=== PATIENT | female | born 1940 | race Caucasian/White ===

== ENCOUNTER 2022-04-11 05:50 | Inpatient (IN) ==
[~2022-04-11 05:50] MED LIST: Buffered Lidocaine 1% SYRIN 1 ml INTRADERM ONE; HYDROcodone/ACETAMIN 5/325 mg TAB PO PRN; Lactated Ringers 1000 ml BAG 1,000 ML IV SCH; Metoclopramide 5 MG/ML VIAL (10 mg) IV PRN; Naloxone 0.4 mg VIAL 0.4 mg/ml 1 ml VIAL IV PRN; Ondansetron 4 mg VIAL 2 MG/ML 2 ml VIAL IV PRN; fentaNYL 100 mcg/2 ml 50 MCG/ML VIAL IV PRN
[2022-04-11] MEDS ORDERED: ceFAZolin 2 GM in NS PREMIX 2 GM/100 ML BAG IVPB ONE (06:29)
[2022-04-11] MEDS ORDERED: fentaNYL 100 mcg/2 ml 50 MCG/ML VIAL ONE ×2 (06:40→11:03)
[2022-04-11] MEDS ORDERED: Bupivacaine 0.5% PF 10 ML SDV VIAL INJ ONE ×2 (06:40→10:24)
[2022-04-11] MEDS ORDERED: Ondansetron 4 mg VIAL 2 MG/ML 2 ml VIAL ONE (06:40)
[2022-04-11] MEDS ORDERED: Propofol 10 MG/ML 20 ML BTL ONE ×2 (06:40→11:55)
[2022-04-11] MEDS ORDERED: Phenylephrine IV 10 MG/ML 1 ml VIAL ONE (06:40)
[2022-04-11] MEDS ORDERED: Lidocaine 2% PF 5 ML VIAL ONE (06:40)
[2022-04-11] MEDS ORDERED: Acetaminophen IV 1 GM/100ML 0 MG/0 ML BAG IV ONE (06:40)
[2022-04-11] MEDS ORDERED: Dexamethasone IV 4 MG/ML VIAL 1 ml VIAL ONE (06:40)
[2022-04-11] MEDS ORDERED: Midazolam 2 mg/2 ml VIAL 1 mg/ml 2 ml VIAL (2 mg) ONE (06:40)
[2022-04-11] MEDS ORDERED: ROPIVACAINE 5 MG/ML 30 ML BTL (0.5%) ONE (07:11)
[2022-04-11] MEDS ORDERED: Sterile Water for Inj 10 ML ONE (08:16)
[2022-04-11] MEDS ORDERED: Magnesium Hydroxide LIQ 30 ML UDC PO PRN (08:56)
[2022-04-11] MEDS ORDERED: Ondansetron ODT 4 mg TAB 4 MG TAB PO PRN (08:56)
[2022-04-11] MEDS ORDERED: Ondansetron 4 mg VIAL 2 MG/ML 2 ml VIAL IV PRN (08:56)
[2022-04-11] MEDS ORDERED: Morphine 2 MG/ML SYRINGE IV PRN (08:56)
[2022-04-11] MEDS ORDERED: Lactulose 30 ml UDC PO PRN (08:56)
[2022-04-11] MEDS: Lactated Ringers 1000 ml BAG 1,000 ML IV SCH ×2 (12:16→23:40)
[2022-04-11] MEDS: Vitamin THERAPEUTIC TAB PO SCH (12:56)
[2022-04-11] MEDS: Magnesium Hydroxide LIQ 30 ML UDC PO SCH ×2 (12:56→21:18)
[2022-04-11] MEDS: ceFAZolin 1 GM ADVAN 1 GM in NS 0.9% 50 ML 50 ML IVPB SCH ×2 (17:39→23:15)
[2022-04-12 06:27] LABS: Hematocrit 31 % (35-47); Hemoglobin 10.5 g/dL (12.0-16.0); Mean Platelet Volume 7.2 fL (7.4-10.4); Platelet Count 252 10^3/uL (150-450)
[2022-04-12 06:55] LABS: Calcium 8.4 mg/dL (8.6-10.3); Potassium 4.8 mmol/L (3.5-5.0); eGFR CKD-EPI 83.6 (>60)
[2022-04-12] MEDS: ceFAZolin 1 GM ADVAN 1 GM in NS 0.9% 50 ML 50 ML IVPB SCH (07:27)
[2022-04-12] MEDS ORDERED: LoraTADine 10 mg TAB (NF) PO SCH (09:00)
[2022-04-12] MEDS: Magnesium Hydroxide LIQ 30 ML UDC PO SCH ×2 (09:10→21:10)
[2022-04-12] MEDS: Vitamin THERAPEUTIC TAB PO SCH (09:10)
[2022-04-12] MEDS ORDERED: NS 0.9% 1000 ml BAG 1,000 ML IV SCH (11:15)
[2022-04-12 14:14] LABS: Calcium 8.4 mg/dL (8.6-10.3); Potassium 4.7 mmol/L (3.5-5.0)
[2022-04-12 15:41] LABS: Urine Sodium Concentration < 18 mmol/L
[2022-04-12] MEDS: Calcium Carb (TUMS) 500 mg CHEW TAB PO PRN ×2 (17:17→21:14)
[2022-04-12 18:57] LABS: Urine Osmo 106 mOsm/kg (150-1150)
[2022-04-12 19:22] LABS: Osmolality Serum 266 mOsm/kg (275-295)
[2022-04-12 19:32] LABS: TSH Ultra Thyroid Stim Horm 0.71 mcIU/mL (0.34-5.60)
[2022-04-13 05:50] LABS: Hematocrit 33 % (35-47); Hemoglobin 11.1 g/dL (12.0-16.0); Platelet Count 268 10^3/uL (150-450)
[2022-04-13 06:21] LABS: Calcium 8.6 mg/dL (8.6-10.3); Potassium 4.6 mmol/L (3.5-5.0); eGFR CKD-EPI 82.2 (>60)
[2022-04-13 07:41] VITALS: BP 150/89
[2022-04-13] MEDS: Vitamin THERAPEUTIC TAB PO SCH (09:37)
[2022-04-13] MEDS: Magnesium Hydroxide LIQ 30 ML UDC PO SCH (09:37)
== END 2022-04-13 11:30 | disposition home or self-care (01) | DRG 983 ==
LOC: SSU 05:50 → OR 05:50
PROVIDERS: ADMIT Orthopaedic Surgery Adult Reconstructive Orthopaedic Surgery; ATTEND Orthopaedic Surgery Adult Reconstructive Orthopaedic Surgery